=== PATIENT | male | born 1950 | race Caucasian/White ===

== ENCOUNTER 2018-10-09 13:31 | Emergency (ER) | payer BC, OTHER ==
[2018-10-09 14:05] VITALS: BMI 25.8
--- NOTE | 2018-10-09 15:27 | PDOC ---
History of Present Illness - General History Source: Patient, Family - History of Present Illness Initial Comments: 10/09/18 15:56 This is a 67 yo M with PMH of HTN, diet controlled HLD and abd hernia, who presents due to near syncope earlier today. patient was in a sitting position at a restaurant for 2 min when he felt flushed, sweaty, lightheaded, mildly sob with blurred vision. Episode lasted a minute and was followed by a mild frontal h/a. he denies physical exertion prior to the episode. he admits to a similar episode a year ago for which he received no medical attention. Denies cp, palpitations, loc, focal neuro deficits, vomiting/d/c, f/c. Denies family history of SCD, AR, CVA. 10/09/18 16:10 10/09/18 16:12 <Eliz Gtz - Last Filed: 10/09/18 17:52> <Noah Freeman - Last Filed: 10/09/18 18:04> - General Chief Complaint: Lightheaded Stated Complaint: DIZZINESS Time Seen by Provider: 10/09/18 15:26 Past History - Past Medical History COPD: No CHF: No HTN: Yes - Suicide/Smoking/Psychosocial Hx Smoking History: Never smoked Have you smoked in the past 12 months: No Information on smoking cessation initiated: No Hx Alcohol Use: No Drug/Substance Use Hx: No <Eliz Gtz - Last Filed: 10/09/18 17:52> <Noah Freeman - Last Filed: 10/09/18 18:04> - Past Medical History Allergies/Adverse Reactions: Allergies Allergy/AdvReac Type Severity Reaction Status Date / Time No Known Allergies Allergy Verified 10/09/18 14:05 Review of Systems - Review of Systems Constitutional: No: Chills, Fever, Weakness HEENTM: Yes: Blurred Vision. No: Difficulty Swallowing Respiratory: Yes: Shortness of Breath. No: Cough Cardiac (ROS): Yes: Lightheadedness. No: Chest Pain, Palpitations, Syncope ABD/GI: Yes: Nausea. No: Constipated, Diarrhea, Vomiting : No: Dysuria Musculoskeletal: No: Back Pain <Eliz Gtz - Last Filed: 10/09/18 17:52> *Physical Exam - Vital Signs Last Vital Signs Temp Pulse Resp BP Pulse Ox 97.2 F L 60 14 140/70 100 10/09/18 14:01 10/09/18 14:01 10/09/18 14:01 10/09/18 14:01 10/09/18 14:01 - Physical Exam General Appearance: Yes: Nourished. No: Apparent Distress HEENT: positive: EOMI, YESI. negative: Pale Conjunctivae Neck: positive: Supple. negative: Carotid bruit, Lymphadenopathy (R), Rigidity , Thyromegaly Respiratory/Chest: positive: Lungs Clear, Normal Breath Sounds Cardiovascular: positive: Regular Rate, S1, S2. 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 negative: Numbness, Sensory Deficit Deep Tendon Reflexes: Knee (L): 1+, Knee (R): 1+ <Eliz Gtz - Last Filed: 10/09/18 17:52> - Vital Signs Last Vital Signs Temp Pulse Resp BP Pulse Ox 97.2 F L 60 14 140/70 98 10/09/18 14:01 10/09/18 14:01 10/09/18 14:01 10/09/18 14:01 10/09/18 15:10 <Noah Freeman - Last Filed: 10/09/18 18:04> Moderate Sedation - Procedure Monitoring Vital Signs: Procedure Monitoring Vital Signs Temperature 97.2 F L 10/09/18 14:01 Pulse Rate 60 10/09/18 14:01 Respiratory Rate 14 10/09/18 14:01 Blood Pressure 140/70 10/09/18 14:01 O2 Sat by Pulse Oximetry (%) 100 10/09/18 14:01 <Eliz Gtz - Last Filed: 10/09/18 17:52> - Procedure Monitoring Vital Signs: Procedure Monitoring Vital Signs Temperature 97.2 F L 10/09/18 14:01 Pulse Rate 60 10/09/18 14:01 Respiratory Rate 14 10/09/18 14:01 Blood Pressure 140/70 10/09/18 14:01 O2 Sat by Pulse Oximetry (%) 98 10/09/18 15:10 <Noah Freeman - Last Filed: 10/09/18 18:04> Heart Score/ECG Review - History History: Slightly suspicious - Electrocardiogram EKG: Normal - Age Age: >/= 65 - Risk Factors Risk Factors Heart Score: Yes Hx Hypercholesterolemia, Yes Hx Hypertension Based on the list above the patient has:: 1-2 risk factors - ECG Intrepretation Rhythm: Regular Rhythm - Premier Premier: Normal (EKG NS 59, no evidence of acs or strain.) <Eliz Gtz - Last Filed: 10/09/18 17:52> ED Treatment Course - LABORATORY CBC & Chemistry Diagram: 10/09/18 16:01 10/09/18 16:01 - ADDITIONAL ORDERS Additional order review: labs are unremarkable, aside from mild leukocytosis with left shift which is nonspecific. Trop, tsh wnl. XCR wnl. patients symptoms are likely orthostatic/ vasovagal. Patient given PO hydration. outpatient tilt table test recommended. 10/09/18 17:53 - RADIOLOGY Chest X-Ray Result: No Infiltrates Radiograph Interpretation: CXR unremarkable 10/09/18 17:53 <Eliz Gtz - Last Filed: 10/09/18 17:52> - LABORATORY CBC & Chemistry Diagram: 10/09/18 16:01 10/09/18 16:01 - ADDITIONAL ORDERS Additional order review: Laboratory Results 10/09/18 16:01 Sodium 139 Potassium 3.9 Chloride 101 Carbon Dioxide 33 H Anion Gap 5 L BUN 12 Creatinine 0.9 Creat Clearance w eGFR > 60 Random Glucose 117 H Calcium 9.6 Magnesium 2.3 Total Bilirubin 0.5 AST 18 ALT 27 Alkaline Phosphatase 102 Troponin I < 0.02 Total Protein 7.3 Albumin 3.8 TSH 1.39 10/09/18 16:01 RBC 5.36 MCV 93.4 MCHC 34.3 RDW 13.5 MPV 8.6 Neutrophils % 84.3 H Lymphocytes % 10.1 Monocytes % 4.3 Eosinophils % 0.9 Basophils % 0.4 <Noah Freeman - Last Filed: 10/09/18 18:04> *DC/Admit/Observation/Transfer <Eliz Gtz - Last Filed: 10/09/18 17:52> - Discharge Dispostion Decision to Admit order: No <Noah Freeman - Last Filed: 10/09/18 18:04> Diagnosis at time of Disposition: Vasovagal episode - Discharge Dispostion Disposition: HOME Condition at time of disposition: Improved - Referrals Referrals: Ifeoma Lacy MD [Primary Care Provider] - - Patient Instructions Printed Discharge Instructions: DI for Syncope in Adults (Fainting) Additional Instructions: Return to the emergency department immediately with ANY new, persistent or worsening symptoms. You MUST call and follow up with your doctor tomorrow for further evaluation of your symptoms. Results were discussed with you. Please make sure your doctor reviews the results of your emergency evaluation. If you had any xrays during your visit, it was read preliminarily by myself, a Radiologist will review it and if there are any additional findings we will call you. Print Language: GHANAIAN - Post Discharge Activity Forms/Work/School Notes: Back to Work
--- NOTE | 2018-10-09 15:50 | PDOC ---
Attending Attestation - Resident Resident Name: Eliz Gtz - ED Attending Attestation I have performed the following: I have examined & evaluated the patient, The case was reviewed & discussed with the resident, I agree w/resident's findings & plan, Exceptions are as noted - HPI HPI: 10/09/18 16:06 67y F hx of htn, gerd, arthritis presents with presyncopal episode. The patient states he was in his usual state of health until around lunch time he had just picked up his friend had dropped from of home and came back to [employer] to get some food. After ordering he sat down and felt very diaphoretic, lightheaded, nauseous and felt like passing out the patient laid down states that the symptoms lasted approximate 10 minutes before resolving. The patient denies associated palpitations, chest pain, headache, vomiting, diarrhea BPR, melena. Patient states he is currently back to normal. he notes he did eat some breakfast this morning. 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 HEAD: Normocephalic, atraumatic. EYES: extraocular movements intact, sclera anicteric, conjunctiva clear. ENT: Normal voice, Moist mucous membranes. NECK: Normal range of motion, supple LUNGS: Breath sounds equal, clear to auscultation bilaterally. No wheezes, no rhonchi, no rales. HEART: Regular rate and rhythm, normal S1 and S2 without murmur, rub or gallop. ABDOMEN: Soft, nontender, normoactive bowel sounds. No guarding, no rebound. . No CVA tenderness EXTREMITIES: Normal range of motion, no edema. No clubbing or cyanosis. No cords, erythema, or tenderness. NEUROLOGICAL: No facial assymetry, Normal speech, PSYCH: Normal mood, normal affect. SKIN: Warm, Dry, normal turgor, - Medical Decision Making 10/09/18 15:49 67y M hx of htn, presents with presyncopal episode. Feeling better at that this point no associated chest pain, palpitations, shortness of breath, hemoptysis, leg swelling, headache. Patient appears well in no distress with an unremarkable physical exam Will obtain blood work to screen for anemia, metabolic derangements EKG to screen for arrhythmia. Fluids for hydration If patient is asymptomatic possible discharge with PMD follow-up Heart Score/ECG Review - ECG Impressions Comment:: 10/09/18 16:29 Twelve-lead EKG was performed and reviewed by me. There is normal sinus rhythm with a rate of [address] changes suggestive of acute ischemia Impression: Sinus bradycardia
[2018-10-09 16:43] LABS: BASO % 0.4 % (0-2.0); EOS % 0.9 % (0-4.5); HEMATOCRIT 50.1 % (35.4-49); HEMOGLOBIN 17.2 GM/dL (11.7-16.9); LYMPH % 10.1 % (8-40); MCH 32.1 pg (25.7-33.7); MCHC 34.3 g/dl (32.0-35.9); MEAN CELL VOLUME 93.4 fl (80-96); MEAN PLT VOLUME 8.6 fl (7.5-11.1); MONO % 4.3 % (3.8-10.2); NEUT % 84.3 % (42.8-82.8); PLATELET COUNT 287 K/MM3 (134-434); RBC 5.36 M/mm3 (4.00-5.60); RDW 13.5 % (11.9-15.9); WHITE BLOOD COUNT 11.5 K/mm3 (4.0-10.0)
[2018-10-09 17:03] LABS: ALBUMIN 3.8 g/dl (3.4-5.0); ALK PHOS 102 U/L (45-117); ANION GAP 5 MMOL/L (8-16); BILIRUBIN,TOTAL 0.5 mg/dL (0.2-1); BLOOD UREA NITROGEN 12 mg/dL (7-18); CALCIUM 9.6 mg/dL (8.5-10.1); CHLORIDE 101 mmol/L (98-107); CO2 33 mmol/L (21-32); CREATININE 0.9 mg/dL (0.55-1.3); GLUCOSE,RANDOM 117 mg/dL (74-106); MAGNESIUM 2.3 mg/dL (1.8-2.4); POTASSIUM 3.9 mmol/L (3.5-5.1); SGOT/AST 18 U/L (15-37); SGPT/ALT 27 U/L (13-61); SODIUM 139 mmol/L (136-145); TOT PROT 7.3 g/dl (6.4-8.2)
[2018-10-09 18:46] VITALS: BP 138/77; PULSE 78; TEMP 98.6
--- NOTE | 2018-10-10 18:16 | EKG ---
Test Reason : Blood Pressure : / mmHG Vent. Rate : 059 BPM Atrial Rate : 059 BPM P-R Int : 154 ms QRS Dur : 104 ms QT Int : 422 ms P-R-T Axes : 042 011 046 degrees QTc Int : 417 ms SINUS BRADYCARDIA OTHERWISE NORMAL ECG NO PREVIOUS ECGS AVAILABLE Confirmed by MD FCO, LASHAE ([id number]) on 10/10/2018 6:16:12 PM Referred By: Confirmed By:LASHAE EAGLE MD
== END 2018-10-09 18:44 | disposition home or self-care (01) ==
LOC: JER 13:31
DX: R55 Syncope and collapse (principal); I10 Essential (primary) hypertension; E78.5 Hyperlipidemia, unspecified
CPT/HCPCS: 36415; 71045-TC-FY; 80053; 83735; 84443; 84484; 85025; 93005; 93010; 99285-25